=== PATIENT | female | born 1985 | race Two or more races ===

== ENCOUNTER 2025-07-29 03:16 | Emergency (ER) | payer OTHER, SELFPAY ==
[~2025-07-29] VITALS: Ht 157.5 cm; Wt 46.3 kg
[2025-07-29] MEDS ORDERED: HALOPERIDOL LACTATE 5 MG/ML VIAL As Ordered ONE (03:21)
[2025-07-29] MEDS ORDERED: diphenhydrAMINE 50 MG/ML VIAL As Ordered ONE (03:21)
[2025-07-29] MEDS: HALOPERIDOL LACTATE 5 MG/ML VIAL IM ONE (03:50)
[2025-07-29] MEDS: diphenhydrAMINE 50 MG/ML VIAL IM ONE (03:50)
[2025-07-29 04:04] LABS: PLATELET COUNT, AUTOMATED 482 10^3/uL (150-450)
[2025-07-29 04:28] LABS: SALICYLATE LEVEL < 3.0 MG/DL (<30)
[2025-07-29 04:29] LABS: ALT/SGPT < 9 U/L (7.0-40); AST/SGOT 30 U/L (<34); CALCIUM LEVEL 8.9 MG/DL (8.5-10.1); CARBON DIOXIDE LEVEL 26 MMOL/L (20-31); CHLORIDE LEVEL 110 MMOL/L (98-107); CREATININE FOR GFR 0.67 MG/DL (0.55-1.30); GLOMERULAR FILTRATION RATE > 90.0 (>58); POTASSIUM SERUM 4.7 MMOL/L (3.5-5.1); SODIUM LEVEL 147 MMOL/L (136-145)
[2025-07-29 04:49] LABS: ETHYL ALCOHOL (ETHANOL) 0.284 % (0.000-0.010)
[2025-07-29 04:53] LABS: HCG, SERUM QUALITATIVE NEGATIVE (NEGATIVE)
[2025-07-29 12:35] VITALS: BP 135/85; TEMP 97.6; O2SAT 100
== END 2025-07-29 12:40 | disposition home or self-care (01) ==
LOC: M ED 03:16
DX: F10.129 Alcohol abuse with intoxication, unspecified (principal)
CPT/HCPCS: 80048; 80076; 80143; 82077; 84443; 84703; 85027; 96372; 99285; J1200; J1630; J2060